=== PATIENT | female | born 1990 | race African-American/Black ===

== ENCOUNTER 2024-09-13 16:53 | Emergency (ER) | payer OTHER, SELFPAY ==
--- NOTE | ~2024-09-13 | XR_ITS ---
EXAMINATION: XR LEFT HAND/WRIST XR LEFT HIP WITH PELVIS CLINICAL INFORMATION: Status post fall down stairs. Left hip pain. Left hand pain. COMPARISON: None. TECHNIQUE: 2 views of the chest were obtained. FINDINGS: Left hand: Alignment is anatomic. Mild joint space narrowing of the third and fifth MCP joints. No displaced fracture or dislocation. No focal radiographic soft tissue swelling. Left hip/pelvis: There is normal alignment of the left hip. Left hip cartilage space is preserved with hypertrophic lipping. No displaced fracture or dislocation. There is 8 mm widening of the pubic symphysis. Sacroiliac joints are intact. XR/XR hand wrist LT IMPRESSION: 8 mm widening of the pubic symphysis. Consider ligamentous injury. MRI may be considered. Hypertrophic lipping of the left hip. Electronically signed by: Calin Gray MD 09/13/2024 05:28 PM EDT
--- NOTE | ~2024-09-13 | XR_ITS ---
EXAMINATION: XR LEFT HAND/WRIST XR LEFT HIP WITH PELVIS CLINICAL INFORMATION: Status post fall down stairs. Left hip pain. Left hand pain. COMPARISON: None. TECHNIQUE: 2 views of the chest were obtained. FINDINGS: Left hand: Alignment is anatomic. Mild joint space narrowing of the third and fifth MCP joints. No displaced fracture or dislocation. No focal radiographic soft tissue swelling. Left hip/pelvis: There is normal alignment of the left hip. Left hip cartilage space is preserved with hypertrophic lipping. No displaced fracture or dislocation. There is 8 mm widening of the pubic symphysis. Sacroiliac joints are intact. XR/XR hip LT w PEL1V IMPRESSION: 8 mm widening of the pubic symphysis. Consider ligamentous injury. MRI may be considered. Hypertrophic lipping of the left hip. Electronically signed by: Calin Gray MD 09/13/2024 05:28 PM EDT
[2024-09-13 17:00] VITALS: BP 119/71; PULSE 84; RESP 18; TEMP 36.6; O2SAT 98; BMI 31.7
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
[2024-09-13 20:37] VITALS: BP 119/71; PULSE 84; RESP 18; TEMP 36.6; O2SAT 98
== END 2024-09-13 20:37 | disposition home or self-care (01) ==
PROVIDERS: Emergency Provider Emergency Medicine
DX: S69.92XA Unspecified injury of left wrist, hand and finger(s), initial encounter (principal); S79.912A Unspecified injury of left hip, initial encounter; M25.532 Pain in left wrist; M25.552 Pain in left hip; W18.30XA Fall on same level, unspecified, initial encounter; Y93.89 Activity, other specified; Y92.89 Other specified places as the place of occurrence of the external cause; Y99.0 Civilian activity done for income or pay
CPT/HCPCS: 29125; 73110; 73130; 73502; 99283; 99284

== ENCOUNTER 2025-05-19 13:25 | Outpatient (AMB) | payer OTHER, SELFPAY ==
--- NOTE | 2025-05-19 13:30 | MHC.PC.OV ---
Vital Signs 05/19/25 13:32 Height 5 ft 1.02 in Weight 187 lb 2 oz BMI 35.3 BP 110/76 Blood Pressure Location Lt brachial Position Sitting Pulse 82 Pulse Source Pulse Oximeter Temp 97.3 F Temp Source Temporal Artery Scan Pulse Oximetry (%) 99 Oxygen Delivery Method Room Air Intake Visit Reasons: establish care Intake Note: Patient is a new patient here to establish care for wellness visit. Transferring care from Dr Coburn ([facility]). Medical records have been requested and have not received. Supervisor Dyer Required: No Flitch Hanger: Not Required per policy Accompanied by: Self / Same As Patient Allergies No Known Allergies Allergy (Verified 05/19/25 13:46) Medication List - Last Reconciled 05/19/25 by Vibha Gamino PA-C No Known Home Meds Tobacco use date assessed: 05/19/25 Dental Screening Dental Screen Date: 05/19/25 Did you have a dental visit in the last 12 months?: Yes Did you have a dental problem in the last 6 months where you did not have access to dental care?: No Was dental information given to patient?: Patient has dentist HPI establish care HPI Details 35-year-old female coming to the office for the 1st time. Presenting with palpitations and insomnia. She reports episodes of palpitations with rapid heartbeat and shortness of breath, occurring four times in the past three months, each lasting a few seconds before spontaneously resolving. Palpitations are not accompanied by nausea, vomiting, or chest pain and occur mainly in the morning. Reports insomnia, feeling tired upon waking despite minimal nighttime awakenings. Right knee pain, especially in the morning, attributed to weight. Difficulty losing weight despite dietary changes and walking, possibly related to past control use. 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 1. Little interest or pleasure in doing things: not at all 2. Feeling down, depressed, or hopeless: not at all 3. Trouble falling or staying asleep, or sleeping too much: several days 4. Feeling tired or having little energy: several days 5. Poor appetite or overeating: not at all 6. Feeling bad about yourself - or that you are a failure or have let yourself or your family down: not at all 7. Trouble concentrating on things, such as reading the newspaper or watching television: not at all 8. Moving or speaking so slowly that other people could have noticed. Or the opposite - being so fidgety or restless that you have been moving around a lot more than usual: not at all 9. Thoughts that you would be better off or of hurting yourself in some way: not at all Total score: 2 Depression Screening Interpretation: Positive Depression Screening Done: Yes Source: Developed by Drs. Yovanny Perze, Cheri Waggoner, Jose Rafael Forrester and colleagues, with an educational rylee from [employer]. Thrive Questionnaire Date Thrive assessed: 05/12/25 I am a: Patient What is your living situation today?: I have a steady place to live Within the past 12 months, did the food you bought not last and you didn't have the money to get more?: Never true Within the past 12 months, did you worry whether your food would run out before you got money to buy more?: Never true Do you have trouble paying for medicines?: No Do you have trouble getting transportation to medical appointments?: No Do you have trouble paying your heating and electricity bill?: No Do you have trouble taking care of your child, family member or friend?: No Do you have trouble with day-to-day activities such as bathing, preparing meals, shopping, managing finances, etc.?: No Are you currently unemployed and looking for a job?: No Are you interested in more education?: I choose not to answer this question Please select the resources that you would like help with: None Currently or been in a relationship where the following occur: No concerns reported THRIVE Score: 0 AUDIT C Alcohol Use Questionnaire (AUDIT-C) 1. How often do you have a drink containing alcohol?: Monthly or less 2. How many drinks containing alcohol do you have on a typical day when you are drinking?: 1 or 2 3. How often do you have six or more drinks on one occasion?: Never Total Score: 1 MIESHA-7 AMB Questionnaire MIESHA-7 Date MIESHA - 7 assessed: 05/19/25 Feeling nervous, anxious, or on edge: 0 = Not at all Not being able to stop or control worryin = Not at all Worrying too much about different things: 0 = Not at all Trouble relaxin = Several days Being so restless that it is hard to sit still: 0 = Not at all Becoming easily annoyed or irritable: 0 = Not at all Feeling afraid as if something awful might happen: 0 = Not at all Total MIESHA-7 score (0-4 normal; 5-9 mild; 10-14 moderate; 15-21 severe): 1 Source: Developed by Drs. Yovanny Perez, Cheri Waggoner, Jose Rafael Forrester and colleagues, with an educational rylee from [employer]. Review of Systems Const Denies body aches, Denies chills, Denies fever(s), Denies headache(s) and Denies poor appetite Eyes Reports no additional complaints ENT Denies dizziness and Denies headache(s) Card Denies chest pain, Denies syncope, Denies edema, Denies irregular heart rhythm, Denies lightheadedness, Reports palpitations and Denies dyspnea Resp Denies cough and Denies dyspnea GI Denies abdominal pain, Denies nausea and Denies vomiting Reports no additional complaints Musc Reports no additional complaints and Denies abnormal gait Skin/Breast Reports system reviewed and no additional complaints, except as documented Neuro Denies abnormal gait, Denies dizziness, Denies syncope and Denies headache(s) Psych Reports no additional complaints Endo Reports palpitations Physical exam (Primary Care) Vital Signs: Last Vital Signs Temp 97.3 F 05/19/25 13:32 Pulse 82 05/19/25 13:32 BP 110/76 05/19/25 13:32 Pulse Ox 99 05/19/25 13:32 Oxygen Delivery Method Room Air 05/19/25 13:32 BMI result Body Mass Index 35.3 Tobacco/Smoking Status: Tobacco use Status Tobacco use date assessed 05/19/25 05/19/25 13:41 Patient Tobacco Use Status Never used Tobacco 05/19/25 13:41 e-Cigarette/Vaping Use Never Used 05/19/25 13:41 PHQ-9: PHQ-9 Score PHQ-9: Total score 2 05/19/25 14:46 Depression Screening Interpretation: Positive Thrive Assessment: Date of Thrive Assessment Date Thrive assessed 05/12/25 05/19/25 13:41 Currently or been in a relationship where the following occur: No concerns reported Const General: cooperative, healthy appearing, comfortable and no acute distress Orientation/consciousness: patient oriented x3 HENMT Head: Yes normocephalic Ears: hearing grossly normal bilaterally General nose exam: Normal external nose present Eyes General: appearance normal, both eyes and all related structures Conjunctivae: conjunctivae normal Neck Neck: Yes full ROM and Yes no lymphadenopathy Resp Effort & Inspection: normal respiratory effort Auscultation: clear to auscultation bilaterally, no crackles, no rales, no rhonchi and no wheezes Cardio Rate: regular rate Rhythm: regular rhythm Skin General skin exam: no rashes or lesions noted Neuro General: patient oriented x3 Gait exam (Neuro): Normal gait present Extrem General: Yes normal to inspection, Yes full ROM and No edema Psych Affect: normal affect Attitude: cooperative Insight: Good insight present (Psych) Judgement: Good judgement present (Psych) Coding Level of Care Code New Pt Level 4 (88865) Diagnoses Palpitations R00.2 Primary insomnia F51.01 Insomnia type: primary Acute pain of right knee M25.561 Chronicity: acute Obesity (BMI 30-39.9) E66.9 Assessment & Plan Assessment & Plan (1) Palpitations: Code(s): R00.2 - Palpitations Category: Medical Plan: Patient experiencing intermittent palpitations, I did discuss with her if we do the holter monitor there may be a chance we will miss the episodes if she does not exeprience one. She would like to continue with the test. (2) Insomnia: Code(s): G47.00 - Insomnia, unspecified Category: Medical Qualifiers: Insomnia type: primary Qualified Code(s): F51.01 - Primary insomnia Plan: Plan to start on Hydroxyzine as needed for sleep. Discussed adverse drug reactions with the patient. Plan to follow up in 3 months to review or sooner if needed. (3) Right knee pain: Code(s): M25.561 - Pain in right knee Category: Medical Qualifiers: Chronicity: acute Qualified Code(s): M25.561 - Pain in right knee Plan: This was not evaluated during today's visit. Plan to address at next visit. She believes it is related to her weight. (4) Obesity (BMI 30-39.9): Code(s): E66.9 - Obesity, unspecified Category: Medical Plan: Healthy diet and regular exercise is encouraged. Patient was counseled today on the risks and benefits of GLP-1 injections as well as the dosing schedule. She has no family history or personal history of thyroid disease and no gallbladder disease. Discussed with the patient the potential GI side effects of this medication. Plan to have repeat blood work after one month of therapy to monitor kidney and liver function before increasing the dose of this medication. Follow up in 2 months for a weight check. Plan The patient will undergo a Holter monitor evaluation to identify any arrhythmias associated with her palpitations, which will guide further management if necessary. Hydroxyzine has been prescribed for insomnia, with dosage adjustments advised based on her response and any adverse effects. Physical therapy is recommended for her right knee pain to enhance mobility and alleviate pain. Weight management, including dietary changes and possible medication, is discussed to address obesity and its contribution to knee pain. A cubing machine tender referral for a Pap smear is arranged to maintain routine preventative care. This note was constructed using voice recognition software. While every effort has been made to ensure accuracy and ssis architect, still areas may have been included sometimes these areas may affect the content or meeting of the given symptoms. Total time spent caring for the patient today was 30 minutes. This includes time spent before the visit reviewing the chart, time spent during the visit, and time spent after the visit and documentation. Patient was informed and verbally consented to the use of an ambient scribe for clinic note documentation during this visit. Orders: Orders Comprehensive Met. Panel Today E66.9 - Obesity, unspecified, Z00.00 - Encounter for general adult medical examination without abnormal findings Complete Blood Count Auto Diff Today E66.9 - Obesity, unspecified, Z00.00 - Encounter for general adult medical examination without abnormal findings TSH reflex Free T4 Today E66.9 - Obesity, unspecified, Z00.00 - Encounter for general adult medical examination without abnormal findings Lipid Panel Today Z13.220 - Encounter for screening for lipoid disorders ECG 7 day holter monitor Today R00.2 - Palpitations Vitamin B12 and Folate Today E66.9 - Obesity, unspecified, Z13.21 - Encounter for screening for nutritional disorder Vitamin D 25-OH Total Today E66.9 - Obesity, unspecified, Z00.00 - Encounter for general adult medical examination without abnormal findings Free T4 (Free Thyroxine) Today E66.9 - Obesity, unspecified, Z00.00 - Encounter for general adult medical examination without abnormal findings Referrals MIGRATION SPECIALIST Referral Z12.4 - Encounter for screening for malignant neoplasm of cervix Medications: New hydroxyzine HCl 25 mg PO BEDTIME 30 tabs 1RF tirzepatide (weight loss) (Zepbound) for 4 weeks 2.5 mg (0.5 mL) subcut QWEEK 2 mL 0RF E66.9 - Obesity, unspecified Discontinued naproxen Discontinued Reason: Patient Completed Course 500 mg PO BID 7 days PRN 14 tabs 0RF pain
[2025-05-19 13:32] VITALS: BP 110/76; PULSE 82; TEMP 36.3; O2SAT 99; BMI 35.3
--- OUTSIDE RECORDS SUMMARY | 2025-05-19 15:49 | XMS_ITS | Clinical Summary ---
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 Name Role Phone Unavailable Primary Care Provider Unavailabl e Social History Tobacco Use Types Packs/Day Years Used Date Smoking Tobacco: Never Assessed Comments Unknown Sex and Gender Information Value Date Recorded Sex Assigned at Not on file Legal Sex Female 4:37 PM EST Gender Identity Not on file Sexual Orientation Not on file Plan of Treatment Health Maintenance Due Date Last Done Comments DTaP,Tdap,and Td Vaccines (1 - Tdap) 2008 Hepatitis B Vaccines (1 of 3 - 19+ 3-dose series) 2008 Cervical Cancer Screening: P ap Smear 2010 COVID-19 Vaccine ( - 2023-2 5 season) 2024 Influenza Vaccine (Season Ended) 2025 HIB Vaccines Aged Out No longer eligi ble based on patient's age to complete this topic HPV Vaccines Aged Out No longer eligi ble based on patient's age to complete this topic Hepatitis A Vaccines Aged Out No long er eligible based on patient's age to complete this topic IPV Vaccines Aged Out No longer eligi ble based on patient's age to complete this topic MMR Vaccines Aged Out No longer eligi ble based on patient's age to complete this topic Meningococcal ACWY Vaccine Aged Out N o longer eligible based on patient's age to complete this topic Meningococcal B Vaccine Aged Out No l onger eligible based on patient's age to complete this topic Pneumococcal Vaccine: Pediat rics (0 to 5 Years) and At-Risk Patients (6 to 64 Years) Aged Out No longer eligible b ased on patient's age to complete this topic RSV Immunization Patients Un carolin 20 months Aged Out No longer eligible b ased on patient's age to complete this topic Varicella Vaccines Aged Out No longer eligible based on patient's age to complete this topic
== END 2025-05-19 14:17 | disposition home or self-care (01) ==
LOC: HO.HMCH 13:26
DX: R00.2 Palpitations (principal); E66.9 Obesity, unspecified; Z68.35 Body mass index [BMI] 35.0-35.9, adult; F51.01 Primary insomnia; M25.561 Pain in right knee

== ENCOUNTER → 2025-05-19 13:25 | Outpatient (BNVA) | payer OTHER, SELFPAY | DX: Z13.89 Encounter for screening for other disorder (principal) ==

== ENCOUNTER → 2025-06-14 09:04 | Outpatient (REF) | payer OTHER, SELFPAY ==
--- NOTE | 2025-06-14 09:13 | HM_ITS ---
* Total monitoring time 7 days. * Underlying rhythm is sinus with an average rate of 80/Min. * Rare supraventricular ectopy. * Rare ventricular ectopy. * No significant pauses or high-grade AV blocks. * No patient markers or diary events. MTDD
--- OUTSIDE RECORDS SUMMARY | 2025-06-14 09:20 | XMS_ITS | Clinical Summary ---
Author Organization [facility] ity Address [address] [place] [address] Care Team Providers Care Pain Management Nurse Practitioner Name Role Phone Unavailable Primary Care Provider [...] Screening: P ap Smear 2010 COVID-19 Vaccine (1 - 2023-2 5 season) 2024 Depression Screening 11/25/2024 Influenza Vaccine (#1) 2025 HIB Vaccines Aged Out No longer [...] 5 Years) and At-Risk Patients (6 to 49 Years) Aged Out No longer eligible b ased on patient's age to complete this topic RSV Immunization Patients Un carolin 20 months Aged Out No longer eligible b ased on patient's age to complete this topic Varicella Vaccines Aged Out No longer eligible based on patient's age to complete this topic
[2025-06-14 09:49] LABS: MANUAL DIFF FLAG NO
[2025-06-14 10:05] LABS: Hematocrit 36.3 % (37.0-47.0); Hemoglobin 12.4 g/dl (12.0-16.0); Imm Gran Abs Auto 0.02 X10*3/uL (0.00-0.03); Imm Gran Pct Auto 0.3 % (0.0-0.4); Lymphocytes Absolute Auto 2.8 X10*3/uL (1.2-4.9); Mean Corpuscular HGB Conc 34.2 g/dl (31.0-35.0); Mean Corpuscular Hemoglobin 30.2 pg (27.0-33.0); Mean Corpuscular Volume 88.3 fL (80.0-98.0); NRBC Abs Auto 0.000 X10*3/uL (0.0-0.012); NRBC Pct Auto 0.0 /100WBC (0.0-0.2); Platelet Count 229 X10*3/uL (160-400); Red Blood Count 4.11 X10*6/uL (4.20-5.50); White Blood Count 5.8 X10*3/uL (4.8-10.8)
[2025-06-14 11:11] LABS: Alanine Aminotransferase 34 U/L (0-31); Albumin Level 4.5 g/dL (3.5-5.0); Alkaline Phosphatase 87 U/L (39-117); Anion Gap 9 (12-20); Aspartate Amino Transferase 37 U/L (5-31); Blood Urea Nitrogen 12 mg/dL (9-16); Calcium 8.6 mg/dL (8.4-10.2); Carbon Dioxide 25 mmol/L (22-29); Chloride 110 mmol/L (96-108); Cholesterol 199 mg/dL (<200); Estimated Glomerular Filt Rate > 60; Free T4 (Free Thyroxine) 1.05 ng/dL (0.71-1.85); HDL Cholesterol 37 mg/dL (>40); Potassium 4.1 mmol/L (3.3-5.1); Sodium 140 mmol/L (135-145); Total Protein 7.1 g/dL (6.5-8.0); Triglycerides 147 mg/dL (<150)
[2025-06-14 11:20] LABS: Folate 8.0 ng/mL (> or = 4.0); Vitamin B12 970 pg/mL (200-900)
== END ==
LOC: HO.CARD 09:04
DX: Z00.00 Encounter for general adult medical examination without abnormal findings (principal); R00.2 Palpitations; E66.9 Obesity, unspecified; Z13.220 Encounter for screening for lipoid disorders; Z13.21 Encounter for screening for nutritional disorder
CPT/HCPCS: 36415; 80053; 80061; 82306; 82607; 82746; 84439; 84443; 85025; 93242

== ENCOUNTER → 2025-06-14 09:13 | Outpatient (BNV) | payer OTHER, SELFPAY | PROVIDERS: Visit Provider Internal Medicine | DX: I47.10 Supraventricular tachycardia, unspecified (principal); I49.3 Ventricular premature depolarization | CPT/HCPCS: 93244 ==

== ENCOUNTER 2025-08-16 10:36 | Outpatient (REF) | payer OTHER, SELFPAY ==
[2025-08-16 12:36] LABS: Alanine Aminotransferase 23 U/L (0-31); Albumin Level 4.5 g/dL (3.5-5.0); Alkaline Phosphatase 82 U/L (39-117); Aspartate Amino Transferase 20 U/L (5-31); Total Protein 7.0 g/dL (6.5-8.0)
[2025-08-16 12:48] LABS: HBS Num1 0.75 mIU/mL (0-7.99); HBc Num1 0.05 S/CO (0.00-0.79); HBsAGNum1 0.41 S/CO (0.00-0.99); Hepatitis B Surface Antigen Negative (Negative); ~HepC Num1 0.14 S/CO (0.00-0.79); ~Hepatitis B Surface Antibody NONREACTIVE (Nonreactive); ~Hepatitis C Antibody Nonreactive (Nonreactive)
--- OUTSIDE RECORDS SUMMARY | 2025-08-16 13:00 | XMS_ITS | Clinical Summary ---
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
== END 2025-08-16 10:37 | disposition home or self-care (01) ==
LOC: HO.LAB 10:36
DX: R79.89 Other specified abnormal findings of blood chemistry (principal)
CPT/HCPCS: 36415; 80076; 86704; 86706; 86803; 87340

== ENCOUNTER 2025-08-24 10:43 | Outpatient (AMB) | payer OTHER, SELFPAY ==
[2025-08-24 10:51] VITALS: BP 118/78; PULSE 75; RESP 18; TEMP 36.2; O2SAT 97; BMI 33.3
--- NOTE | 2025-08-24 10:51 | A.OFFPC_ITS ---
Vital Signs 3 08/24/25 10:51 Height 5 ft 3 in Weight 188 lb BMI 33.3 BP 118/78 Blood Pressure Location Lt brachial Position Sitting Respiration 18 Pulse 75 Pulse Source Pulse Oximeter Temp 97.1 F Temp Source Temporal Artery Scan Pulse Oximetry (%) 97 Oxygen Delivery Method Room Air Intake Visit Reasons: annual exam Pollution Control Technician Required: No Accompanied by: Self / Same As Patient Allergies No Known Allergies Allergy (Verified 08/24/25 11:04) Medication List - Last Reconciled 08/24/25 by Vibha Gamino PA-C cholecalciferol (vitamin D3) 25 mcg PO DAILY hydroxyzine HCl 25 mg PO BEDTIME Tobacco use date assessed: 08/24/25 Dental Screening Dental Screen Date: 08/24/25 Did you have a dental visit in the last 12 months?: Yes Did you have a dental problem in the last 6 months where you did not have access to dental care?: No Was dental information given to patient?: Patient has dentist HPI annual exam 2 HPI0 Details 35 year old female with past medical his tory of insomnia last seen 04/2025 coming in for annual exam.?? Presenting with an annual wellness examination. Hydroxyzine is used as needed for sleep, effectively aiding sleep without morning drowsiness. Palpitations: Occur sporadically described as cramp-like, with no episodes recorded during Holter monitoring. No acute concerns today. pap smear: referral placed at last visit vaccines: [facility] Medical History Gestational diabetes Surgical History History of section Family History Mother Diabetes Father Diabetes Hypertension Son No problems noted. Daughter No problems noted. 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 1. Little interest or pleasure in doing things: not at all 2. Feeling down, depressed, or hopeless: not at all 3. Trouble falling or staying asleep, or sleeping too much: several days 4. Feeling tired or having little energy: several days 5. Poor appetite or overeating: not at all 6. Feeling bad about yourself - or that you are a failure or have let yourself or your family down: not at all 7. Trouble concentrating on things, such as reading the newspaper or watching television: not at all 8. Moving or speaking so slowly that other people could have noticed. Or the opposite - being so fidgety or restless that you have been moving around a lot more than usual: not at all 9. Thoughts that you would be better off or of hurting yourself in some way: not at all Total score: 2 Depression Screening Interpretation: Positive Depression Screening Done: Yes Source: Developed by Drs. Yovanny Perez, Cheri Waggoner, Jose Rafael Forrester and colleagues, with an educational rylee from [employer]. Thrive Questionnaire Date Thrive assessed: 05/12/25 I am a: Patient What is your living situation today?: I have a steady place to live Within the past 12 months, did the food you bought not last and you didn't have the money to get more?: Never true Within the past 12 months, did you worry whether your food would run out before you got money to buy more?: Never true Do you have trouble paying for medicines?: No Do you have trouble getting transportation to medical appointments?: No Do you have trouble paying your heating and electricity bill?: No Do you have trouble taking care of your child, family member or friend?: No Do you have trouble with day-to-day activities such as bathing, preparing meals, shopping, managing finances, etc.?: No Are you currently unemployed and looking for a job?: No Are you interested in more education?: I choose not to answer this question Please select the resources that you would like help with: None Currently or been in a relationship where the following occur: No concerns reported THRIVE Score: 0 MIESHA-7 AMB Questionnaire MIESHA-7 Date MIESHA - 7 assessed: 05/19/25 Feeling nervous, anxious, or on edge: 0 = Not at all Not being able to stop or control worryin = Not at all Worrying too much about different things: 0 = Not at all Trouble relaxin = Several days Being so restless that it is hard to sit still: 0 = Not at all Becoming easily annoyed or irritable: 0 = Not at all Feeling afraid as if something awful might happen: 0 = Not at all Total MIESHA-7 score (0-4 normal; 5-9 mild; 10-14 moderate; 15-21 severe): 1 Source: Developed by Drs. Yovanny Perez, Cheri Waggoner, Jose Rafael Forrester and colleagues, with an educational rylee from [employer]. Review of Systems Const Denies body aches, Denies chills, Denies fatigue, Denies fever(s), Denies headache(s) and Denies poor appetite Eyes Reports no additional complaints ENT Denies dysphagia, Denies dizziness, Denies headache(s) and Denies odynophagia Card Denies chest pain, Denies syncope, Denies edema, Denies irregular heart rhythm, Denies lightheadedness and Denies dyspnea Resp Denies cough and Denies dyspnea GI Denies abdominal pain, Denies constipation, Denies dysphagia, Denies diarrhea, Denies nausea, Denies odynophagia and Denies vomiting Reports no additional complaints Musc Reports no additional complaints and Denies abnormal gait Skin/Breast Reports system reviewed and no additional complaints, except as documented Neuro Denies abnormal gait, Denies dizziness, Denies syncope and Denies headache(s) Psych Reports no additional complaints Endo Denies fatigue Physical exam (Primary Care) Vital Signs: Last Vital Signs Temp 97.1 F 08/24/25 10:51 Pulse 75 08/24/25 10:51 Resp 18 08/24/25 10:51 BP 118/78 08/24/25 10:51 Pulse Ox 97 08/24/25 10:51 Oxygen Delivery Method Room Air 08/24/25 10:51 BMI result Body Mass Index 33.3 Tobacco/Smoking Status: Tobacco use Status Tobacco use date assessed 08/24/25 08/24/25 10:57 Patient Tobacco Use Status Never used Tobacco 08/24/25 10:57 e-Cigarette/Vaping Use Never Used 08/24/25 10:57 PHQ-9: PHQ-9 Score PHQ-9: Total score 2 08/24/25 12:23 Depression Screening Interpretation: Positive Thrive Assessment: Date of Thrive Assessment Date Thrive assessed 05/12/25 08/24/25 10:57 Currently or been in a relationship where the following occur: No concerns reported Const General: cooperative, healthy appearing, comfortable and no acute distress Orientation/consciousness: patient oriented x3 HENMT Head: Yes normocephalic Ears: hearing grossly normal bilaterally, external ears normal, TM's normal bilaterally and EAC's normal General nose exam: Normal external nose present Face and sinus: Yes normal facial exam and Yes sinuses nontender Mouth: Normal oral and palatal mucosa present and tongue normal Throat: Yes posterior oropharynx normal Eyes General: appearance normal, both eyes and all related structures Conjunctivae: conjunctivae normal Pupils: Equal, round and reactive pupils present EOM: EOMs intact bilaterally and No Nystagmus present Neck Neck: Yes normal visual inspection, Yes full ROM and Yes no lymphadenopathy Chest Chest palpation & inspection: normal inspection of the chest Resp Effort & Inspection: normal respiratory effort Auscultation: clear to auscultation bilaterally, no crackles, no rales, no rhonchi, no wheezes and breath sounds present Cardio Rate: regular rate Rhythm: regular rhythm Peripheral pulses: radial pulses present and dorsalis pedis present GI Inspection: Yes normal to inspection and No Abdominal wall edema Palpation (GI): Soft to palpation, not firm and nontender Auscultation: normal bowel sounds Rectal Exam - Female: deferred Abdomen image: 2 1. small, reducible umbilical hernia General: Yes no CVA tenderness Back/Spine/Pelvis Back: no CVA tenderness Skin General skin exam: no rashes or lesions noted Neuro General: patient oriented x3 Cranial nerves: Yes Equal, round and reactive pupils present, Yes Midline tongue present, Yes Ability to bilaterally elevate shoulders present and No Nystagmus present Gait exam (Neuro): Normal gait present Extrem General: Yes normal to inspection, Yes full ROM, No no pedal edema and No edema Psych Speech and movement: Normal speech and movement present Affect: normal affect Insight: Good insight present (Psych) Judgement: Good judgement present (Psych) Coding Level of Care Code Est Pt Prev Care [id number]([id number]) Diagnoses Annual physical exam Z00.00 Palpitations R00.2 Primary insomnia F51.01 Insomnia type: primary Obesity (BMI 30-39.9) E66.9 Hypercholesterolemia E78.00 Decreased vision H54.7 Assessment & Plan Assessment & Plan (1) Annual physical exam: Code(s): Z00.00 - Encounter for general adult medical examination without abnormal findings Category: Medical Plan: Patient is due for pap smear and has appointment in September. Her blood work is up to date and was reviewed with the patient today. Healthy diet and regular exercise is encouraged. (2) Palpitations: Code(s): R00.2 - Palpitations Category: Medical Plan: Recent holter monitor did not reveal any abnormalities and she did not eleazar any events. At this time recommend patient continue to monitor her symptoms and keep a log and reach out to the office if symptoms change in frequency or duration. (3) Insomnia: Code(s): G47.00 - Insomnia, unspecified Category: Medical Qualifiers: Insomnia type: primary Qualified Code(s): F51.01 - Primary insomnia Plan: She was started on Hydroxyzine at her last visit and is using as needed with good benefit. (4) Obesity (BMI 30-39.9): Code(s): E66.9 - Obesity, unspecified Category: Medical Plan: Healthy diet and regular exercise is encouraged. GLP-1 injections were declined by insurance and she has appointment with the weight management clinic coming up. (5) Hypercholesterolemia: Code(s): E78.00 - Pure hypercholesterolemia, unspecified Category: Medical Plan: Avoid foods that are high in cholesterol such as red meat, fried foods, eggs and baked goods. Triglyceride goal of less than 150 and LDL goal of less than 130. (6) Decreased vision: Code(s): H54.7 - Unspecified visual loss Category: Medical Plan: Referral placed to eye doctor today. Plan This note was constructed using voice recognition software. While every effort has been made to ensure accuracy and visual display associate, still areas may have been included sometimes these areas may affect the content or meeting of the given symptoms. Total time spent caring for the patient today was 30 minutes. This includes time spent before the visit reviewing the chart, time spent during the visit, and time spent after the visit and documentation. Patient was informed and verbally consented to the use of an ambient scribe for clinic note documentation during this visit. Orders: Referrals 2 Optometry Referral H54.7 - Unspecified visual loss, Z00.00 - Encounter for general adult medical examination without abnormal findings
--- OUTSIDE RECORDS SUMMARY | 2025-08-24 12:02 | XMS_ITS | Clinical Summary ---
Author Organization [facility] ity Address [address] [place] [address] Care Team Providers Care Club Director Name Role Phone Unavailable Primary Care Provider [...] Cervical Cancer Screening: P ap Smear 2010 HPV Vaccines (1 - 3-dose SCD M series) 2016 Depression Screening 11/25/2024 COVID-19 Vaccine ( - 2023-2 5 season) 2025 Influenza Vaccine (#1) 2025 RSV Immunization Adult Patie nts (1 - 1-dose 75+ series) 2064 HIB Vaccines Aged Out No longer eligi [...]
== END 2025-08-24 11:31 | disposition home or self-care (01) ==
LOC: HO.HMCH 10:44
DX: Z00.00 Encounter for general adult medical examination without abnormal findings (principal); R00.2 Palpitations; E66.9 Obesity, unspecified; Z68.33 Body mass index [BMI] 33.0-33.9, adult; F51.01 Primary insomnia; E78.00 Pure hypercholesterolemia, unspecified; H54.7 Unspecified visual loss